=== PATIENT | male | born 1995 | race Asian ===

== ENCOUNTER 2018-01-08 12:04 | Observation (INO) | payer OTHER ==
[~2018-01-08] VITALS: Ht 182.9 cm; Wt 112.6 kg
[~2018-01-08 12:04] MED LIST: AMLO10TA PO; CETI10TA PO; CLONIDINE0.1 MG PO; LISI20TA11 PO; LORA10TA3 PO
[2018-01-08 13:26] LABS: PLATELET COUNT 250 K/uL (142-355)
[2018-01-08 13:38] LABS: PARTIAL THROMBOPLASTIN TIME 29.9 SECONDS (24.5-33.6)
[2018-01-08 14:13] LABS: SODIUM 138 mmol/L (136-145)
[2018-01-08 14:17] LABS: POTASSIUM 4.1 mmol/L (3.6-5.2)
[2018-01-08 17:24] VITALS: BP 162/81; TEMP 98.4; Ht 182.9 cm; Wt 112.6 kg
[2018-01-08 20:00] VITALS: BP 161/102; TEMP 98.6
[2018-01-09] VITALS: BP 128/72; TEMP 98.2
[2018-01-09 04:00] VITALS: BP 161/100; TEMP 97.6
[2018-01-09 05:05] LABS: PLATELET COUNT 258 K/uL (142-355)
[2018-01-09 05:22] LABS: POTASSIUM 3.4 mmol/L (3.6-5.2)
[2018-01-09 08:00] VITALS: BP 158/103; TEMP 97.7
[2018-01-09 12:00] VITALS: BP 158/98; TEMP 97.4
[2018-01-09 16:00] VITALS: BP 159/94; TEMP 97.6
== END 2018-01-09 18:50 | disposition home or self-care (01) ==
LOC: MED/SURG 12:04
PROVIDERS: ADMIT Family Medicine
DX: R07.89 Other chest pain (principal); I10 Essential (primary) hypertension
CPT/HCPCS: 36415; 80053; 80307; 82550; 82553; 83880; 84443; 84484; 85027; 85610; 85730; 93005; 96365; 96366; 96372; 99220; G0378; G0379; J1650

== ENCOUNTER 2018-09-24 19:10 | Emergency (ER) | payer OTHER ==
[~2018-09-24] VITALS: Ht 182.9 cm; Wt 106.6 kg
[2018-09-24 19:38] LABS: PLATELET COUNT 357 K/uL (142-355)
[2018-09-24 19:52] LABS: POTASSIUM 3.2 mmol/L (3.6-5.2); SODIUM 139 mmol/L (136-145)
[2018-09-24 20:55] VITALS: BP 140/84; TEMP 98.3
== END 2018-09-24 20:58 | disposition home or self-care (01) ==
LOC: ED 19:10
PROVIDERS: Student in an Organized Health Care Education/Training Program
DX: I16.0 Hypertensive urgency (principal); R07.89 Other chest pain; R51 Headache
CPT/HCPCS: 80053; 84484; 85027; 93005; 96374; 99284; J2270